=== PATIENT | male | born 1975 | race African-American/Black ===

== ENCOUNTER 2020-09-07 | Emergency (ER) | payer OTHER ==
[2020-09-07] MEDS ORDERED: NASAL SPRAY (18:40)
[2020-09-07] MEDS ORDERED: BENADRYL25 M1 PO (19:52)
[2020-09-07] MEDS ORDERED: EPIPEN 2-P0.3 MG/0.3 IM (19:52)
== END 2020-09-07 20:02 | DRG 918 ==
DX: T63.441A Toxic effect of venom of bees, accidental (unintentional), initial encounter (principal); T78.2XXA Anaphylactic shock, unspecified, initial encounter; Y92.149 Unspecified place in prison as the place of occurrence of the external cause